=== PATIENT | male | born 1985 | race American Indian/Alaskan Native ===

== ENCOUNTER 2016-11-06 21:16 | Emergency (ER) | payer SELFPAY ==
[2016-11-07 07:34] VITALS: BP 139/85
[2016-11-07] MEDS ORDERED: ZITHROMAX PO ONE (07:38)
[2016-11-07] MEDS ORDERED: TYLENOL/CODEINE PO ONE (07:38)
--- NOTE | 2016-11-07 07:40 | Emergency Department Report ---
HPI - General Chief Complaint: Upper Respiratory Infection Time Seen by Provider: 11/07/16 07:21 - HPI HPI: he is a 31-year-old male presents to ED complaining of cough, runny nose and nasal congestion 4 days. Patient states cough is intermittently non productive throughout the day. He states cough is worsening. He denies fevers/ chills/nausea/vomiting/abdominal pain or chest pain. ED Past Medical Hx - Past Medical History Previous Medical History?: Yes Hx Hypertension: Yes (not taking meds) - Surgical History Past Surgical History?: No - Social History Smoking Status: Current Every Day Smoker Substance Use Type: Alcohol - Medications Home Medications: Home Medications Medication Instructions Recorded Confirmed Last Taken Type Azithromycin [Zithromax] 250 mg PO QDAY #4 tablet 11/07/16 Unknown Rx Ibuprofen [Motrin] 600 mg PO Q8H PRN #20 tablet 11/07/16 Unknown Rx Promethazine /Codeine 5 ml PO Q6H PRN #60 ml 11/07/16 Unknown Rx [Phenergan/Codeine 6.25-10 mg/5Ml] ED Review of Systems ROS: Stated complaint: HEADACHE,THROAT ACHE Other details as noted in HPI Constitutional: denies: chills, fever Eyes: denies: eye pain, eye discharge, vision change ENT: throat pain, congestion. denies: ear pain, dental pain Respiratory: cough. denies: shortness of breath, wheezing Cardiovascular: denies: chest pain, palpitations Endocrine: no symptoms reported Gastrointestinal: denies: abdominal pain, nausea, diarrhea Genitourinary: denies: urgency, dysuria Musculoskeletal: denies: back pain, joint swelling, arthralgia Skin: denies: rash, lesions Neurological: denies: headache, weakness, paresthesias Psychiatric: denies: anxiety, depression Hematological/Lymphatic: denies: easy bleeding, easy bruising Physical Exam - Physical Exam Vital Signs: Vital Signs 11/06/16 11/07/16 23:36 07:34 Temperature 98.4 F 99.9 F H Pulse Rate 85 81 Respiratory 18 14 Rate Blood Pressure 159/111 Blood Pressure 139/85 [Right] O2 Sat by Pulse 100 97 Oximetry Physical Exam: GENERAL: Alert and oriented x3, no apparent distress, Normal Gait, atraumatic. HEAD: Head is normocephalic and a-traumatic. EYES: Extra ocular muscles are intact. Pupils are equal, round, and reactive to light and accommodation. EARS: symetrical, atraumatic, non tender, ear canal clear and moderate cerumen, tympanic membrance non inflamed. gross auditory nml bilaterally. NOSE: Nose symetrical, Nontender,Nares appeared normal. MOUTH:Mouth is well hydrated and without lesions. Tonsils nonerythematous or swollen, Uvula midline, Tongue not elevated. Mucous membranes are moist. Posterior pharynx clear, no exudate or lesions. Patent airways. NECK: Supple. Non edematous, No carotid bruits. No lymphadenopathy or thyromegaly. No C-spine tenderness LUNGS: Symetrical with respiration, No wheezing, no rales or crackles, CTAB. HEART: S1, S2 present, regular rate and rhythm without murmur, no rubs, no gallops. Non tender to palpation BACK: Full range of motion, no spinal tenderness, nontender to palpation. SKIN: Warm and dry, No lesions, No ulceration or induration present. ED Course Vital Signs 11/06/16 11/07/16 23:36 07:34 Temperature 98.4 F 99.9 F H Pulse Rate 85 81 Respiratory 18 14 Rate Blood Pressure 159/111 Blood Pressure 139/85 [Right] O2 Sat by Pulse 100 97 Oximetry ED Medical Decision Making - Radiology Data Radiology results: report reviewed, image reviewed Ordering Physician: DEVYN LANDEROS Date of Service: 11/07/16 Procedure(s): XR chest routine 2V Accession Number(s): [id number] cc: DEVYN LANDEROS Fluoro Time In Minutes: ROUTINE CHEST, TWO VIEWS: HISTORY: Cough. The trachea, heart, mediastinal contour, lung buckley and bony thorax are unremarkable. IMPRESSION: Unremarkable chest x-ray. Transcribed By: TTR Dictated By: SOFIA WARE JR, MD Electronically Authenticated By: SOFIA WARE JR, MD Signed Date/Time: 11/07/1612 - Medical Decision Making 32-year-old who presents with upper respiratory infection ED course: Patient received azithromycin in the ED Chest x-ray was ordered, rapid strep tests ordered Chest x-ray negative, rapid strep test negative Discussed findings with the patient. Discussed the patient to take medication as prescribed, rest Discussed patient to follow up with primary care physician vital signs are normalized patient is in no acute distress or respiratory distress. Critical care attestation.: If time is entered above; I have spent that time in minutes in the direct care of this critically ill patient, excluding procedure time. ED Disposition Clinical Impression: URI (upper respiratory infection) Qualifiers: URI type: unspecified URI Qualified Code(s): J06.9 - Acute upper respiratory infection, unspecified Disposition: DC- TO HOME OR SELFCARE Is pt being admited?: No Does the pt Need Aspirin: No Condition: Stable Instructions: Upper Respiratory Infection (ED), Acute Bronchitis (ED) Prescriptions: Azithromycin [Zithromax] 250 mg PO QDAY #4 tablet Ibuprofen [Motrin] 600 mg PO Q8H PRN #20 tablet PRN Reason: Pain Promethazine /Codeine [Phenergan/Codeine 6.25-10 mg/5Ml] 5 ml PO Q6H PRN #60 ml PRN Reason: cough Referrals: PRIMARY CARE, [Primary Care Provider] - 3-5 Days [facility] [Outside] - 3-5 Days [facility] [Outside] - 3-5 Days [facility] [Outside] - 3-5 Days Forms: Accompanied Note, Work/School Release Form(ED) Time of Disposition: 08:23
--- NOTE | 2016-11-07 08:14 | XRay Report ---
ROUTINE CHEST, TWO VIEWS: HISTORY: Cough. The trachea, heart, mediastinal contour, lung buckley and bony thorax are unremarkable. IMPRESSION: Unremarkable chest x-ray.
== END 2016-11-07 09:04 | disposition home or self-care (01) ==
LOC: ED 21:16
DX: J06.9 Acute upper respiratory infection, unspecified (principal); I10 Essential (primary) hypertension; F17.210 Nicotine dependence, cigarettes, uncomplicated
CPT/HCPCS: 71020; 87116; 87430; 99283

== ENCOUNTER 2016-11-15 05:07 | Emergency (ER) | payer SELFPAY | END 2016-11-15 05:15 | disposition left against medical advice (07) | LOC: EDBD → ED 05:07 → MERGE 05:07 → ED 05:15 | DX: R07.9 Chest pain, unspecified (principal); Z53.21 Procedure and treatment not carried out due to patient leaving prior to being seen by health care provider ==